=== PATIENT | female | born 1975 | race Caucasian/White ===

== ENCOUNTER 2017-06-10 16:51 | Emergency (ER) | payer OTHER ==
[2017-06-10 18:33] VITALS: BP 129/55
[2017-06-10] MEDS ORDERED: Albuterol HFA INHALER* 8 gm MDI INH ONE (18:48)
--- NOTE | 2017-06-10 18:54 | UC ---
Respiratory Complaint HPI - HPI Summary HPI Summary: Patient has cough for the past week, has started wheezing, no fever, no sinus complaints, - History of Current Complaint Chief Complaint: UCRespiratory Stated Complaint: COUGH Time Seen by Provider: 06/10/17 18:25 Hx Obtained From: Patient Hx Last Menstrual Period: 02/27/17 ?: Yes Onset/Duration: Sudden Onset, Lasting Weeks - 1 Timing: Constant Severity Initially: Mild Severity Currently: Moderate Character: Cough: Nonproductive Aggravating Factors: Allergens, Exertion, Deep Breaths Alleviating Factors: Nothing Associated Signs And Symptoms: Positive: Wheezing - Allergies/Home Medications Allergies/Adverse Reactions: Allergies Allergy/AdvReac Type Severity Reaction Status Date / Time Morphine Allergy Intermediate Itching Verified 06/10/17 18:33 Penicillins Allergy Intermediate Hives Verified 06/10/17 18:33 all nuts Allergy Anaphylatic Uncoded 06/10/17 18:33 Shock Home Medications: Home Medications Acetaminophen TAB* [Tylenol TAB*] 500 mg PO ONCE 06/10/17 [History Confirmed ] PMH/Surg Hx/FS Hx/Imm Hx Previously Healthy: Yes - Surgical History Surgical History: Yes Surgery Procedure, Year, and Place: x 2. ngoc - Family History Known Family History: Positive: None, Hypertension - Social History Alcohol Use: None Substance Use Type: None Smoking Status (MU): Never Smoked Tobacco Have You Smoked in the Last Year: No Household Exposure Type: Cigarettes - Immunization History Most Recent Influenza Vaccination: 08/11/15 Most Recent Tetanus Shot: 10/21/15 Most Recent Pneumonia Vaccination: Never Vaccination Up to Date: Yes Review of Systems Constitutional: Negative Skin: Negative Eyes: Negative ENT: Negative Respiratory: Shortness Of Breath, Cough Cardiovascular: Negative Gastrointestinal: Negative Genitourinary: Negative Motor: Negative Neurovascular: Negative Musculoskeletal: Negative Neurological: Negative Psychological: Negative All Other Systems Reviewed And Are Negative: Yes Physical Exam Triage Information Reviewed: Yes Appearance: Well-Appearing, Well-Nourished, Pain Distress Vital Signs: Initial Vital Signs Temp 98.6 F 06/10/17 18:25 Pulse 74 06/10/17 18:25 Resp 18 06/10/17 18:25 BP 129/55 06/10/17 18:25 Pulse Ox 99 06/10/17 18:25 Vital Signs Reviewed: Yes Eye Exam: Normal ENT Exam: Normal ENT: Positive: Pharynx normal, TMs normal Dental Exam: Normal Neck exam: Normal Respiratory Exam: Normal Respiratory: Positive: Chest non-tender, Normal breath sounds, No respiratory distress, Wheezing, Inspiration Cardiovascular Exam: Normal Cardiovascular: Positive: RRR, No Murmur, Pulses Normal Abdominal Exam: Normal Abdomen Description: Positive: Nontender, No Organomegaly, Soft Bowel Sounds: Positive: Present Musculoskeletal Exam: Normal Musculoskeletal: Positive: Strength Intact, ROM Intact, No Edema Neurological Exam: Normal Neurological: Positive: Alert, Muscle Tone Normal Psychological Exam: Normal Skin Exam: Normal UC Diagnostic Evaluation - Laboratory O2 Sat by Pulse Oximetry: 99 Respiratory Course/Dx - Course Course Of Treatment: hx obtained, meds reviewed, exam performed, treated for bronchospasm - Differential Dx/Diagnosis Differential Diagnosis/HQI/PQRI: Asthma, Bronchitis, Laryngitis, Sinusitis Provider Diagnoses: bronchospasm Discharge - Discharge Plan Condition: Stable Disposition: HOME Patient Education Materials: Bronchospasm (ED) Additional Instructions: 1. increase your fluid intake 2. take the medication as prescribed. 3Continue with symtpom treatment 4. Follow up with any worsening symtpoms
== END 2017-06-10 19:06 | disposition home or self-care (01) ==
LOC: UCCORT 16:51
DX: J98.01 Acute bronchospasm (principal)
CPT/HCPCS: 99212; A9270-GY; G0463

== ENCOUNTER 2017-12-04 06:12 | Inpatient (IN) | payer OTHER ==
[2017-12-04] MEDS ORDERED: Sodium Citrate/Citric Acid* 15 ML UDC ONE (07:40)
[2017-12-04] MEDS ORDERED: ceFOXitin 2 GM IVPREMIX* 2 GM/50 ML BAG IVPB ONE (08:00)
[2017-12-04] MEDS ORDERED: Morphine PF AMP (0.5MG/ML)* 5 MG/10 ML AMP ONE (08:02)
[2017-12-04] MEDS ORDERED: OXYTOCIN* 10 UNITS/ML 1 ML VIAL ONE (09:02)
[2017-12-04] MEDS ORDERED: EPHEDrine (Pressors)* 50 MG/ML VIAL ONE (09:02)
[2017-12-04] MEDS ORDERED: Phenylephrine IV* 40 MCG/ML 10 ML SYRINGE ONE (09:02)
[2017-12-04] MEDS ORDERED: Glycopyrrolate IV* 0.2 MG/ML 1 ML VIAL ONE (09:02)
[2017-12-04] MEDS ORDERED: Naloxone* 0.4 MG/ML 1 ML VIAL IV PRN ×2 (09:18→09:19)
[2017-12-04] MEDS ORDERED: fentaNYL* 50 MCG/ML 2 ML VIAL (100 MCG VIAL) IV PRN (09:18)
[2017-12-04] MEDS ORDERED: HYDROmorphone INJ* 1 MG/ML CARPUJECT SYRINGE IV PRN (09:18)
[2017-12-04] MEDS ORDERED: Nalbuphine* 20 MG/ML 1 ML VIAL IV PRN ×3 (09:18→09:19)
[2017-12-04] MEDS ORDERED: Scopolamine 1.5 mg* PATCH TRANSDERM PRN (09:18)
[2017-12-04] MEDS ORDERED: DiMENhydriNATE IV* 50 MG/ML VIAL IV PUSH PRN ×2 (09:18→09:19)
[2017-12-04] MEDS ORDERED: Ondansetron INJ* 2 MG/ML VIAL IV PRN ×2 (09:18→09:19)
[2017-12-04] MEDS ORDERED: HYDROcodone/ACETAMIN 5-325 MG* 1 TAB PO PRN (09:19)
[2017-12-04] MEDS ORDERED: diPHENhydraMINE IV* 50 MG/ML 1 ml VIAL (BENADRYL) IV PRN (09:19)
[2017-12-04] MEDS ORDERED: oxyCODONE/Acetamin 5/325 MG* TAB PO PRN (09:19)
[2017-12-04] MEDS ORDERED: Naloxone* 2 MG in NS 0.9% 250 ML* 250 ML IV PRN (09:19)
[2017-12-04] MEDS ORDERED: Ketorolac INJ* 30 MG/ML 1 ML VIAL ONE (09:24)
[2017-12-04] MEDS ORDERED: Witch Hazel PAD* JAR TOPICAL PRN (09:51)
[2017-12-04] MEDS ORDERED: Glycerin ADULT SUPP PR PRN (09:51)
[2017-12-04] MEDS ORDERED: Dibucaine 1% 28.35 GM TUBE PR PRN (09:51)
[2017-12-04] MEDS ORDERED: Zolpidem TAB* 5 MG PO PRN (09:51)
[2017-12-04] MEDS: Acetaminophen TAB* 325 MG PO PRN ×3 (12:11→20:02)
[2017-12-04] MEDS: Ketorolac INJ* 30 MG/ML 1 ML VIAL IV PRN ×2 (15:52→22:29)
[2017-12-04] MEDS: Simethicone TAB* 80 MG TAB.CHEW PO SCH ×2 (19:54→20:01)
[2017-12-04] MEDS: Docusate CAP* 100 MG PO SCH ×2 (19:54→20:01)
--- NOTE | 2017-12-04 23:59 | OP ---
DATE OF OPERATION: 12/04/17 - ROOM #118 DATE OF : 77 SURGEON: Fabrice Palencia MD LAB HEAD: Dr. Chao PRE-OP DIAGNOSIS: Previous section x2. POST-OP DIAGNOSIS: Previous section x2. OPERATIVE PROCEDURE: Low transverse section. COMPLICATIONS: None. FINDINGS: Include a viable female. Apgars 10 and 9, weight was 8 pounds 3 ounces. Normal appearing uterus, fallopian tubes and ovaries. DESCRIPTION OF PROCEDURE: The patient identified and procedure identified as a low transverse section. The patient was taken to the operating room and prepped and draped in the usual fashion in the left lateral recumbent position under spinal anesthesia. A Pfannenstiel incision was made in the abdomen in the old incision and carried down through fat, fascia, and peritoneum. A transverse incision was made in the lower uterine segment and extended laterally using the bandage scissors. At this point, the uterine incision was noted to be quite thin. The above was delivered through the incision and vacuum extractor was utilized to make the delivery easier. The cord was doubly clamped and cut and the infant was handed to the awaiting pci security consultant. Cord blood was obtained. Placenta delivered spontaneously. The uterus was wiped out with a wet lap sponge. The uterine incision was then closed using 0 Polysorb in a running fashion. A second layer was used to imbricate the first layer. Good hemostasis was verified. The peritoneum was then closed using 3-0 Polysorb in a running fashion. Hemostasis achieved in the subrectus layers. The fascia was closed using 0 Polysorb in a running fashion. Good hemostasis achieved in the subcu. Copious irrigation was utilized and suctioned out. The space in the subcu was closed using 3-0 Polysorb in a simple fashion and the skin was closed with 4-0 Monocryl in a subcuticular fashion. All sponge and instrument counts were correct and the patient returned to the recovery room in stable condition. [id number]/[facility] #: [id number] [facility]
[2017-12-05] MEDS ORDERED: oxyCODONE/Acetamin 5/325 MG* TAB PO PRN (00:30)
[2017-12-05] MEDS: oxyCODONE/Acetamin 5/325 MG* TAB PO PRN ×2 (03:30→14:28)
[2017-12-05] MEDS: Ketorolac INJ* 30 MG/ML 1 ML VIAL IV PRN (04:42)
[2017-12-05 07:41] LABS: ABS Basophils 0.1 10^3/ul (0-0.2); ABS Eosinophils 0.2 10^3/ul (0-0.6); ABS Monocytes 0.7 10^3/ul (0-0.8); ABS Neutrophils 7.6 10^3/ul (1.5-7.7); ABS Nucleated RBC 0 10^3/ul; Eosinophil % 1.7 % (0-6); Hematocrit 31 % (35-47); Hemoglobin 10.5 g/dl (12.0-16.0); Lymphocyte % 18.6 % (25-47); Mean Corpuscular HGB Conc 34 g/dl (31-36); Mean Corpuscular Hemoglobin 31 pg (27-31); Mean Corpuscular Volume 92 fL (80-97); Mean Platelet Volume 10 um3 (7.4-10.4); Nucleated Red Blood Cells % 0; Platelet Count 180 10^3/ul (150-450); Red Blood Count 3.38 10^6/ul (4.0-5.4); Red Cell Distribution Width 15 % (10.5-15); White Blood Count 10.5 10^3/ul (3.5-10.8)
[2017-12-05] MEDS ORDERED: Ferrous Gluconate TAB* 324 MG TAB PO SCH (09:00)
[2017-12-05] MEDS: Docusate CAP* 100 MG PO SCH ×3 (09:03→21:20)
[2017-12-05] MEDS: Simethicone TAB* 80 MG TAB.CHEW PO SCH ×4 (09:03→21:20)
[2017-12-05] MEDS: Ibuprofen TAB* 600 MG PO PRN ×2 (12:05→18:00)
[2017-12-05] MEDS: Acetaminophen TAB* 325 MG PO PRN (21:20)
[2017-12-06] MEDS: Ibuprofen TAB* 600 MG PO PRN ×4 (01:54→20:24)
[2017-12-06] MEDS: Acetaminophen TAB* 325 MG PO PRN ×2 (08:04→13:35)
[2017-12-06] MEDS: Simethicone TAB* 80 MG TAB.CHEW PO SCH ×3 (08:05→20:24)
[2017-12-06] MEDS: Docusate CAP* 100 MG PO SCH ×3 (08:05→20:24)
[2017-12-06 20:04] VITALS: BP 145/75
[2017-12-07] MEDS: Ibuprofen TAB* 600 MG PO PRN (08:06)
[2017-12-07] MEDS: Docusate CAP* 100 MG PO SCH (08:06)
[2017-12-07] MEDS: Simethicone TAB* 80 MG TAB.CHEW PO SCH (08:07)
[2017-12-07] MEDS ORDERED: Scopolamine PATCH Remove* 1 NOTE MISC PATCH OFF ONE (09:19)
== END 2017-12-07 10:00 | disposition home or self-care (01) | DRG 540 ==
LOC: MCHOB 06:12
PROVIDERS: ADMIT Obstetrics & Gynecology; ATTEND Obstetrics & Gynecology
PROC: 10D00Z1 Extraction of Products of Conception, Low, Open Approach (ICD-10-PCS; 2017-12-04)
PROC: 4A1HX4Z Monitoring of Products of Conception, Cardiac Electrical Activity, External Approach (ICD-10-PCS; principal; 2017-12-04 07:45)
DX: O34.211 Maternal care for low transverse scar from previous cesarean delivery (principal); Z68.41 Body mass index [BMI] 40.0-44.9, adult; O99.214 Obesity complicating childbirth; E66.9 Obesity, unspecified; Z3A.39 39 weeks gestation of pregnancy; Z37.0 Single live birth; Z88.0 Allergy status to penicillin; Z88.5 Allergy status to narcotic agent; Z91.018 Allergy to other foods; Z87.891 Personal history of nicotine dependence
CPT/HCPCS: 36415; 85025; A9270-GY; J0694; J1885; J2590

== ENCOUNTER 2018-11-24 14:51 | Emergency (ER) | payer OTHER ==
[2018-11-24 15:38] VITALS: BP 127/70
--- NOTE | 2018-11-24 16:39 | UC ---
Throat Pain/Nasal Ryan HPI - HPI Summary HPI Summary: ONSET YESTERDAY OF SORE THROAT AND PAIN WITH SWALLOWING. KEPT HER UP LAST NIGHT. SAW WHITE SPOTS ON HER TONSILS TODAY. HAD FEVER AND CHILLS. NO COUGH OR CONGESTION. - History of Current Complaint Chief Complaint: UCRespiratory Stated Complaint: THROAT PAIN Time Seen by Provider: 11/24/18 15:39 Hx Obtained From: Patient Hx Last Menstrual Period: 11/15/2018 Onset/Duration: Gradual Onset, Lasting Days - 1 DAY, Still Present Severity: Moderate Pain Intensity: 5 Pain Scale Used: 0-10 Numeric Cough: None Associated Signs & Symptoms: Positive: Fever - Allergies/Home Medications Allergies/Adverse Reactions: Allergies Allergy/AdvReac Type Severity Reaction Status Date / Time Penicillins Allergy Hives Verified 12/04/17 07:41 all nuts Allergy Anaphylatic Uncoded 06/10/17 18:33 Shock Home Medications: Home Medications Ibuprofen 200 mg PO 11/24/18 [History] Norethindrone [Deblitane] 11/24/18 [History] PMH/Surg Hx/FS Hx/Imm Hx Previously Healthy: Yes - Surgical History Surgical History: Yes Surgery Procedure, Year, and Place: x 2. ngoc - Family History Known Family History: Positive: Hypertension - Social History Alcohol Use: None Substance Use Type: None Smoking Status (MU): Never Smoked Tobacco Have You Smoked in the Last Year: No Household Exposure Type: Cigarettes - Immunization History Most Recent Influenza Vaccination: 07/13/2017 Most Recent Tetanus Shot: 10/21/15 Most Recent Pneumonia Vaccination: Never Vaccination Up to Date: Yes Review of Systems All Other Systems Reviewed And Are Negative: Yes Constitutional: Positive: Fever, Chills, Fatigue ENT: Positive: Sore Throat Respiratory: Positive: Negative Cardiovascular: Positive: Negative Gastrointestinal: Positive: Negative Physical Exam Triage Information Reviewed: Yes Appearance: Well-Appearing, No Pain Distress, Well-Nourished Vital Signs: Initial Vital Signs Temp 97.0 F 11/24/18 15:30 Pulse 95 11/24/18 15:30 Resp 16 11/24/18 15:30 BP 127/70 11/24/18 15:30 Pulse Ox 98 11/24/18 15:30 Laboratory Tests 11/24/18 15:48 Group A Strep Rapid Positive A Vital Signs Reviewed: Yes Eyes: Positive: Conjunctiva Clear ENT: Positive: Hearing grossly normal, Pharyngeal erythema, TMs normal, Tonsillar swelling, Tonsillar exudate Neck: Positive: Supple, Tenderness @ - SPFL CERCIAL LAD, Enlarged Nodes @ - SPFL [employer]ERCIAL LAD Respiratory Exam: Normal Cardiovascular Exam: Normal Abdomen Description: Positive: Soft Musculoskeletal: Positive: No Edema Neurological: Positive: Alert Psychological: Positive: Age Appropriate Behavior Skin: Negative: Rashes Throat Pain/Nasal Course/Dx - Differential Dx/Diagnosis Provider Diagnosis: Strep pharyngitis Discharge - Sign-Out/Discharge Documenting (check all that apply): Patient Departure All imaging exams completed and their final reports reviewed: No Studies - Discharge Plan Condition: Stable Disposition: HOME Prescriptions: Azithromycin 500 mg PO DAILY #5 tab Patient Education Materials: Strep Throat (ED) Referrals: Parth Mari MD [Primary Care Provider] - If Needed Additional Instructions: STREP POSITIVE. TAKE ANTIBIOTICS FOR THE FULL COURSE. OTC CHLORASEPTIC OR CEPACOL LOZENGES AND/OR IBUPROFEN FOR SORE THROAT NEEDED ONCE SYMPTOMS RESOLVED - NEW TOOTHBRUSH DO NOT SHARE FOOD, DRINK, UTENSILS - Billing Disposition and Condition Condition: STABLE Disposition: Home
== END 2018-11-24 16:54 | disposition home or self-care (01) ==
LOC: UCEAST 14:51
DX: J02.0 Streptococcal pharyngitis (principal); Z77.22 Contact with and (suspected) exposure to environmental tobacco smoke (acute) (chronic); Z88.0 Allergy status to penicillin; Z91.018 Allergy to other foods
CPT/HCPCS: 87651; 99212; G0463